=== PATIENT | male | born 1970 | race Caucasian/White ===

== ENCOUNTER 2017-01-09 15:57 | Inpatient (IN) ==
[2017-01-09] MEDS ORDERED: NS 1,000 ML IV ONE ×2 (19:19→20:53)
[2017-01-09] MEDS ORDERED: VANCOMYCIN 1 GM/NS 1 GM/250 ML IVPB IV ONE (19:20)
[2017-01-09] MEDS ORDERED: ZOSYN 4.5 GM/NS 4.5 GM/100 ML IVPB IV ONE (19:20)
[2017-01-09] MEDS ORDERED: DILAUDID IV ONE (19:21)
[2017-01-09] MEDS ORDERED: ZOFRAN IV ONE (19:21)
[2017-01-09] MEDS ORDERED: XYLOCAINE 1% INJ ONE (19:23)
[2017-01-09] MEDS ORDERED: XYLOCAINE-MPF 1% INJ ONE (19:23)
--- NOTE | 2017-01-09 19:27 | PROVIDER DOCUMENTATION ---
HPI-Rash/Wound/ReCheck - General Chief Complaint: Abscess Stated Complaint: POSS INSECT BITE/ABSCESS Time Seen by Provider: 01/09/17 19:10 Source: patient Allergies/Adverse Reactions: Allergies Allergy/AdvReac Type Severity Reaction Status Date / Time cephalexin monohydrate * Allergy HIVES Verified 01/09/17 19:21 [From Keflex] Home Medications: Home Medication List Medication Instructions Recorded Confirmed Last Taken Type NK [No Home Medications] 01/09/17 01/09/17 Unknown History - History of Present Illness-Dermatology Nature of Presenting Problem: 46 year old WM presents with c/o abscess to right knee, left elbow and left lower back. 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 pt reports the knee and elbow wound began as a pimple type wound and has progressed since that time. pt reports over the weekend, the erythema spread quickly into his groin and down his leg. pt reports associated subjective fever/chills with weakness. denies NVD. Location: reports: upper extremity, lower extremity, torso Quality: reports: painful Severity: reports: mild, moderate Onset/Duration: reports: 1 week ago Timing: reports: still present, constant, getting worse Context/Associated Symptoms: reports: insect bite/sting, abscess Identifiable cause?: Yes Similar Symptoms Previously?: No Recently seen or treated by another doctor?: No Review of Systems - Adult - REVIEW OF SYSTEMS - ADULT Constitutional: reports: see HPI, chills, fever, fatique Eyes: reports: no symptoms reported. denies: discharge, blurred vision, double vision, redness Ears, Nose, Mouth & Throat: reports: no symptoms reported. denies: ear discharge, ear pain, nose pain, loose teeth, throat pain, throat swelling Cardiovascular: reports: no symptoms reported. denies: chest pain, palpitations , syncope Respiratory: reports: no symptoms reported. denies: chronic cough, cough, shortness of breath, wheezing Gastrointestinal: reports: no symptoms reported. denies: abdominal pain, diarrhea, nausea, vomiting Genitourinary: reports: no symptoms reported. denies: dysuria, hematuria, urgency Musculoskeletal: reports: no symptoms reported. denies: bone pain, joint pain, joint swelling, neck pain Integumentary: reports: see HPI, rash, skin sores/ulcer. denies: hives, itching Neurological: reports: no symptoms reported. denies: ataxia, dizziness/vertigo , numbness, paresthesia Psychiatric: reports: no symptoms reported Endocrine: reports: no symptoms reported Hematologic/Lymphatic: reports: no symptoms reported Allergic/Immunologic: reports: no symptoms reported. denies: allergic reactions , allergic rhinitis, frequent infections All Other Systems: Reviewed and Negative Past History - Adult - PAST MEDICAL HISTORY-ADULT Review of Records: reports: Old Records Reviewed, Nursing Assessment Review, Medications Reviewed, Social history reviewed & non-contributory. Major Childhood Illnesses: reports: denies history Cardiovascular: reports: denies history Respiratory: reports: denies history Gastrointestinal: reports: denies history Obstetrical/Gynecological: reports: denies history Genitourinary: reports: denies history Musculoskeletal: reports: denies history Neurological: reports: denies history Endocrine/Immune: reports: denies history Other Conditions: reports: denies history - IMMUNIZATION STATUS Childhood Immunizations: See Nurse Assessment Flu Vaccine: See Nurse Assessment - FAMILY HISTORY Family History: reviewed, not pertinent - SOCIAL HISTORY Smoking: cigarettes, greater than 1 pack/day Provider spent 3-5 mins advising pt. on dangers of tobacco.: Discussed manners to quit use, and f/u contacts for add'l counseling. Substance Use: amphetamines Alcohol Use Frequency: occasionally Physical Exam-General - PHYSICAL EXAM-ADULT Initial Vital Signs Reviewed: Yes - CONSTITUTIONAL General Appearance: appears well, alert, mild distress. negative: no apparent distress, moderate distress - EYES Eyes: pink conjunctivae - HEAD, EARS, NOSE, MOUTH & THROAT HENMT: normocephalic/atraumatic, moist mucous membranes, normal ENT inspection - NECK Neck: non-tender, full range of motion, supple, normal inspection. negative: C- spine tenderness, limited range of motion, tender lateral, tender midline - RESPIRATORY Respiratory: chest non-tender, lungs clear, normal breath sounds, no pleuratic chest pain, no respiratory distress, no accessory muscle use. negative: respiratory distress, decreased breath sounds, accessory muscle use, crackles, rales, rhonchi, stridor, wheezing - CARDIOVASCULAR Cardiovascular: normal peripheral pulses, regular rate, rhythm - GASTROINTESTINAL (ABDOMEN) Abdominal Exam: normal bowel sounds, non tender, soft - MUSCULOSKELETAL Back Exam: no CVA tenderness, no vertebral tenderness, other (1cm by 1cm well healed abscess without fluctuance, surrounding erythema.). negative: normal inspection, CVA tenderness, decreased range of motion, swelling, vertebral tenderness Extremity: normal capillary refill, pelvis stable, erythema (7cm by 7cm abscess to right anterior knee + Fluctuance; with diffuse surrounding erythema; erythema spreads down to ankle, anterior foot and up into groin region with streaking. posterior left calf with patches of erythema. 2cm by 2cm abscess to left elbow region with fluctuance and surrounding erythema, scanyt yellow drainage noted.), inflammation, pedal edema, swelling, tenderness. negative: normal range of motion, non-tender, normal gait, normal inspection, no pedal edema, abnormal NV exam, calf tenderness, deformity, pulse deficit, slow capillary refill Peripheral Pulses: radial (R): 3+, radial (L): 3+, dorsalis-pedis (R): 3+, dorsalis-pedis (L): 3+ - SKIN Integumentary: erythema, swelling, tenderness - NEUROLOGIC Neurologic: grossly normal, no motor/sensory deficits - PSYCHIATRIC Psych/Mental Status: normal mood/affect, normal thought content, normal thought process, oriented x 3 Progress - PLAN OF CARE/RESULTS Progress/Plan/Lab Results: Vital Signs - 8 hr 01/09/17 16:06 Temperature 98.9 F Pulse Rate 117 H Respiratory Rate 18 Blood Pressure 146/85 O2 Sat by Pulse Oximetry 99 Laboratory Results - last 24 hr 01/09/17 01/09/17 01/09/17 19:43 19:43 19:43 WBC 15.11 H RBC 5.01 Hgb 14.3 Hct 42.6 MCV 85.0 MCH 28.5 MCHC 33.6 RDW Std Deviation 13.3 Plt Count 314 MPV 9.7 Immature Gran % (Auto) 0.2 Neut % (Auto) 78.1 H Lymph % (Auto) 12.8 L [place] % (Auto) 8.0 Eos % (Auto) 0.7 Baso % (Auto) 0.2 Immature Gran # (Auto) 0.03 Neut # (Auto) 11.80 H Lymph # (Auto) 1.93 [place] # (Auto) 1.21 H Eos # (Auto) 0.11 Baso # (Auto) 0.03 PT INR PTT (Actin FS) Sodium 137 Potassium 3.9 Chloride 96 L Carbon Dioxide 27 Anion Gap 14 BUN 11 Creatinine 0.8 Estimated GFR/1.73 m2 > 60 BUN/Creatinine Ratio 14 Glucose 67 L Calculated Osmolality 271 Calcium 9.3 Total Bilirubin 0.44 AST 15 ALT 13 Alkaline Phosphatase 103 Total Protein 8.0 Albumin 4.2 Globulin 3.8 Albumin/Globulin Ratio 1.1 Plasma Lactate 1.5 Urine Source Urine Color Urine Turbidity Urine pH Ur Specific [place] Urine Protein Ur Glucose (Stick) Ur Ketones (Stick) Urine Blood Urine Nitrite Urine Bilirubin Urobilinogen Dipstick Urine Leukocytes Urine WBC (Auto) Urine RBC (Auto) U Epithel Cells (Auto) Urine Bacteria (Auto) 01/09/17 01/09/17 19:43 20:25 WBC RBC Hgb Hct MCV MCH MCHC RDW Std Deviation Plt Count MPV Immature Gran % (Auto) Neut % (Auto) Lymph % (Auto) [place] % (Auto) Eos % (Auto) Baso % (Auto) Immature Gran # (Auto) Neut # (Auto) Lymph # (Auto) [place] # (Auto) Eos # (Auto) Baso # (Auto) PT 10.7 INR 1.02 PTT (Actin FS) 33.6 Sodium Potassium Chloride Carbon Dioxide Anion Gap BUN Creatinine Estimated GFR/1.73 m2 BUN/Creatinine Ratio Glucose Calculated Osmolality Calcium Total Bilirubin AST ALT Alkaline Phosphatase Total Protein Albumin Globulin Albumin/Globulin Ratio Plasma Lactate Urine Source CLEAN CATCH Urine Color YELLOW Urine Turbidity CLEAR Urine pH 6.5 Ur Specific [place] 1.016 Urine Protein NEGATIVE Ur Glucose (Stick) NEGATIVE Ur Ketones (Stick) NEGATIVE Urine Blood NEGATIVE Urine Nitrite NEGATIVE Urine Bilirubin NEGATIVE Urobilinogen Dipstick 2 A Urine Leukocytes NEGATIVE Urine WBC (Auto) <10 Urine RBC (Auto) <10 U Epithel Cells (Auto) <10 Urine Bacteria (Auto) NEGATIVE Orders Category Date Time Status Saline Loc NOW Care 01/09/17 19:18 Active Suture Tray Set-Up DIRECTED Care 01/09/17 19:23 Active CHEST-2 VIEWS [RAD] Stat Exams 01/09/17 19:19 Taken BLOOD CULTURE [BLDCUL] Stat Lab 01/09/17 19:29 Ordered CBC WITH ELECTRONIC DIFF [HEME] Stat Lab 01/09/17 19:43 Completed COMPREHENSIVE METABOLIC PANEL [CHEM] Stat Lab 01/09/17 19:43 Completed LACTATE, PLASMA [CHEM] Stat Lab 01/09/17 19:43 Completed PROTIME WITH INR [COAG] Stat Lab 01/09/17 19:43 Completed PTT [COAG] Stat Lab 01/09/17 19:43 Completed URINALYSIS W/POSS RFLX CULT-1 [URINALYSIS] Stat Lab 01/09/17 20:25 Completed URINE DRUG SCREEN Stat Lab 01/09/17 20:25 Received 0.9% Sodium Chloride Inj [Ns] 1,000 ml Med 01/09/17 20:53 Active IV 100 mls/hr 0.9% Sodium Chloride Inj [Ns] 1,000 ml Med 01/09/17 19:19 Discontinued IV 999 mls/hr Hydromorphone [Dilaudid] Med 01/09/17 19:21 Discontinued 0.5 mg IV NOW ONE Lidocaine 1% Pf [Xylocaine-Mpf 1%] Med 01/09/17 19:23 Discontinued See Dose Instructions INJ NOW ONE Lidocaine 1% [Xylocaine 1%] Med 01/09/17 19:23 Discontinued 50 ml INJ NOW ONE Ondansetron [Zofran] Med 01/09/17 19:21 Discontinued 4 mg IV NOW ONE Piperacil/Tazobact 4.5 gm/Ns [Zosyn 4.5 gm/Ns] Med 01/09/17 19:20 Discontinued 4.5 gm in 100 ml IV NOW Vancomycin 1 gm/Ns Med 01/09/17 19:20 Discontinued 1 gm in 250 ml IV NOW EKG [EKG] Stat Ther 01/09/17 19:18 Ordered Transfer/Admit Order [TRANSFER] Routine Transfer 01/09/17 20:49 Ordered Vital Signs - 24 hr 01/09/17 16:06 Temperature 98.9 F Pulse Rate 117 H Respiratory Rate 18 Blood Pressure 146/85 O2 Sat by Pulse Oximetry 99 Result Diagrams: 01/09/17 19:43 01/09/17 19:43 - CONSULTS/PCP/HOSPITALIST Notification #1 *Consult/PCP/Hospitalist*: Dr. Mead Time Discussed: 20:34 Consult Disposition: other (referred admission to surgery because pt has no PMH. ) #2 Consult: Dr. Dorman Time Discussed: 20:36 Consult Disposition: Will see in ED (will evaluate in the ED.) Departure - Departure Time of Disposition Decision: 20:34 DIAGNOSIS: Abscess Cellulitis Qualifiers: Site of cellulitis: extremity Site of cellulitis of extremity: lower extremity Laterality: right Qualified Code(s): L03.115 - Cellulitis of right lower limb Disposition: ADMITTED INPATIENT 09 Certified Medical Emergency: Emergent Condition: Stable Referrals and Follow-Ups: None,PCP [Primary Care Provider] - - Critical Care Note This patient required my direct & personal management of CC.: No Attestation - Physician/ MAITE Attestation Patient care was provided by Advanced Practice Provider:: Yes Advanced Practice Provider:: Jarocho Peng Advanced Practice Provider documentation review:: The Mid-level provider documentation, treatment plan and medical decision making was reviewed by the physician who agrees with all treatment and medical decision making by the MLP. The physician spent face to face time with patient:: Yes ([id number]) Advanced Practice Provider documentation review:: The physician spent face to face time with this patient and agrees with all MLP documentation, treatment, and medical decision making by the MLP. See provider notes for further information.
[2017-01-09 19:49] LABS: MANUAL DIFF NEEDED? NO
[2017-01-09 19:55] LABS: BASO% 0.2 % (0.0-0.8); EOS# 0.11 X1000 (0.0-0.7); EOS% 0.7 % (0.0-10.0); HEMATOCRIT 42.6 % (42.0-52.0); HEMOGLOBIN 14.3 g/dL (14.0-18.0); IMM GRAN# 0.03 X1000 (0.0-0.04); IMM GRAN% 0.2 % (0.0-0.5); LYMPH# 1.93 X1000 (1.2-3.4); LYMPH% 12.8 % (20.5-51.1); MCH 28.5 PG (27-31); MCHC 33.6 g/dL (33-37); MONO# 1.21 X1000 (0.11-0.59); MPV 9.7 FL (7.4-10.4); NEUT% 78.1 % (42.2-75.2); PLT 314 X1000 (130-400); RBC 5.01 XMIL (4.7-6.1)
[2017-01-09 20:02] LABS: INR 1.02; PROTIME 10.7 Seconds (9.2-11.7); PTT 33.6 Seconds (22.0-36.0)
[2017-01-09 20:09] LABS: AGAP 14; ALBUMIN 4.2 g/dL (3.5-5.0); ALKALINE PHOSPHATASE 103 U/L (32-122); BUN 11 mg/dL (8-22); CALCIUM 9.3 mg/dL (8.8-10.2); CHLORIDE 96 mmol/L (98-107); COSMO 271; GOT 15 U/L (10-34); GPT 13 U/L (10-44); POTASSIUM 3.9 mmol/L (3.5-5.1); SODIUM 137 mmol/L (136-145); TCO2 27 mmol/L (25-35); TOTAL BILIRUBIN 0.44 mg/dL (0.20-1.00)
[2017-01-09 20:30] LABS: URINE CULTURE NEEDED? NO; URINE MICRO REVIEW NEEDED? NO; URINE SOURCE CLEAN CATCH
[2017-01-09 20:33] LABS: BILIRUBIN URINE NEGATIVE (NEGATIVE); BLOOD URINE NEGATIVE (NEGATIVE); COLOR YELLOW; GLUCOSE URINE NEGATIVE (NEGATIVE); LEUKOCYTES URINE NEGATIVE (NEGATIVE); NITRITE URINE NEGATIVE (NEGATIVE); PH URINE 6.5; PROTEIN URINE NEGATIVE (NEGATIVE); SP GRAVITY URINE 1.016; TURBIDITY URINE CLEAR (CLEAR); UROBILINOGEN URINE 2 mg/dL (NORMAL)
[2017-01-09 20:34] LABS: UR EPITHELIAL CELLS <10 /HPF (<10); URINE BACTERIA NEGATIVE /HPF; URINE RBC <10 /HPF (<10); URINE WBC <10 /HPF (<10)
[2017-01-09 21:05] LABS: UR AMPHETAMINES QUAL PRESUMPTIVE POSITIVE (NONE DETECT); UR BARBITUATES QUAL NONE DETECTED (NONE DETECT); UR BENZODIAZEPIN QUAL NONE DETECTED (NONE DETECT); UR CANNABINOIDS QUAL PRESUMPTIVE POSITIVE (NONE DETECT); UR COCAINE QUAL NONE DETECTED (NONE DETECT); UR METHADONE QUAL NONE DETECTED (NONE DETECT); UR OPIATES QUAL NONE DETECTED (NONE DETECT); UR OXYCODONE QUAL NONE DETECTED (NONE DETECT); UR PCP QUAL NONE DETECTED (NONE DETECT)
--- NOTE | 2017-01-09 21:53 | HISTORY AND PHYSICAL ---
CHIEF COMPLAINT: Skin and soft tissue infection. 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 Left lower back. Began as a pimple like lesion and have worsened. He reports some fever and chills, some pain. He takes no scheduled medications at home even though he has had some psychiatric history and been on some psychiatric drugs in the past. ALLERGIES: He is allergic to Keflex. FAMILY HISTORY: Noncontributory. SOCIAL HISTORY: He smokes a pack a day. Substance uses with amphetamine, alcohol use occasionally. REVIEW OF SYSTEMS: Primarily pertinent for as noted above with chills. fever and fatigue, reports no blurred vision. No neck swelling. No chest pain or shortness of breath. No GI distress. No dysuria. PHYSICAL EXAMINATION: VITAL SIGNS: He is afebrile, heart rate 117, respiratory rate 18, blood pressure 146/85. NECK: No adenopathy. LUNGS: Bilateral breath sounds. HEART: Regular rhythm. ABDOMEN: Soft. EXTREMITIES: He has erythema and swelling over the knee on the right side with some peripheral swelling, he has a small punctate area of erythema on the left elbow. NEURO: He is awake, alert and oriented. DIAGNOSTICS/LABS: White count is 15,100. Other labs are normal. ASSESSMENT: Skin, soft tissue infection. PLAN: Admission with IV antibiotics. Hopefully will not come to I and D but we will follow along. cc: Tom Dorman MD
[2017-01-09] MEDS: NORCO-7.5 PO PRN (23:15)
[2017-01-10] MEDS: NORCO-7.5 PO PRN ×4 (02:51→15:25)
[2017-01-10 05:32] LABS: MANUAL DIFF NEEDED? NO
[2017-01-10 05:36] LABS: BASO% 0.1 % (0.0-0.8); EOS# 0.11 X1000 (0.0-0.7); EOS% 0.8 % (0.0-10.0); HEMATOCRIT 38.1 % (42.0-52.0); HEMOGLOBIN 12.6 g/dL (14.0-18.0); LYMPH# 2.27 X1000 (1.2-3.4); LYMPH% 16.5 % (20.5-51.1); MCH 28.6 PG (27-31); MCHC 33.1 g/dL (33-37); MCV 86.6 FL (81-99); MONO# 1.41 X1000 (0.11-0.59); MONO% 10.3 % (1.7-9.3); MPV 9.6 FL (7.4-10.4); NEUT% 72.3 % (42.2-75.2); PLT 267 X1000 (130-400)
--- NOTE | 2017-01-10 07:47 | Diag Imaging Result Document ---
PROCEDURE NAME: CHEST-2 VIEWS - 01/09/2017 FRONTAL AND LATERAL CHEST, TWO VIEWS: FINDINGS: The lungs are well expanded. The heart is not enlarged. The vessels are not distended. No pneumonia. No pleural effusions. No free air beneath the diaphragm. IMPRESSION: No acute abnormality.
[2017-01-10] MEDS: VANCOMYCIN 1 GM/NS 1 GM/250 ML IVPB IV SCH ×2 (10:43→23:23)
[2017-01-10] MEDS: NORCO-10 PO PRN ×2 (17:51→20:57)
[2017-01-10] MEDS: NICODERM PATCH TD PRN (23:23)
[2017-01-10] MEDS: AMBIEN PO SCH (23:23)
[2017-01-11] MEDS: NORCO-10 PO PRN ×4 (04:47→20:43)
[2017-01-11 06:20] LABS: MANUAL DIFF NEEDED? NO
[2017-01-11 06:30] LABS: BASO% 0.2 % (0.0-0.8); EOS# 0.09 X1000 (0.0-0.7); EOS% 0.7 % (0.0-10.0); HEMATOCRIT 38.2 % (42.0-52.0); HEMOGLOBIN 12.8 g/dL (14.0-18.0); IMM GRAN# 0.03 X1000 (0.0-0.04); IMM GRAN% 0.2 % (0.0-0.5); LYMPH% 10.8 % (20.5-51.1); MCH 28.6 PG (27-31); MCHC 33.5 g/dL (33-37); MCV 85.5 FL (81-99); MONO% 9.3 % (1.7-9.3); MPV 9.6 FL (7.4-10.4); NEUT% 78.8 % (42.2-75.2); PLT 335 X1000 (130-400); RBC 4.47 XMIL (4.7-6.1)
[2017-01-11] MEDS ORDERED: MORPHINE ONE (08:38)
[2017-01-11] MEDS ORDERED: DIPRIVAN 1% ONE (08:38)
[2017-01-11] MEDS: MORPHINE ONE ×5 (09:03→09:20)
[2017-01-11] MEDS ORDERED: NORCO-10 ONE (09:18)
--- NOTE | 2017-01-11 09:24 | OPERATIVE NOTE ---
PROCEDURE DATE: 01/11/2017 PROCEDURES: Incision and drainage right leg abscess on the anterior aspect of the knee. SURGEON: Tom Dorman MD. TECHNICAL SPECIALIST CYTOGENETICS: Litzy. PREOPERATIVE DIAGNOSIS: Skin and soft tissue infection, right knee. POSTOPERATIVE DIAGNOSIS: Skin and soft tissue infection, right knee. DESCRIPTION OF PROCEDURE: Satisfactory general anesthesia was achieved. An LMA was used. The right anterior leg at the knee area was prepped and draped in a sterile fashion. We incised the skin, purulence came forth, we cultured it. We then made a vertical incision, deeper into the skin and soft tissue exposing some underlying purulence. We were able to dissect both medially and laterally into the infected subcutaneous tissue. We excised and debrided the necrotic portions. After we felt that we had opened up all the various subcutaneous compartments with purulence, we then copiously irrigated it. We did pack the wound with iodoform gauze. A sterile gauze and Kerlix was applied. He tolerated it well. Was sent to the recovery room in satisfactory condition. cc: Tom Dorman MD
[2017-01-11] MEDS ORDERED: TORADOL ONE (09:50)
[2017-01-11] MEDS ORDERED: EXTENSION SET 32 IN 4522 ONE (09:50)
[2017-01-11] MEDS ORDERED: ANESTHESIA PB SET 88 IN 5742 ONE (09:50)
[2017-01-11] MEDS ORDERED: XYLOCAINE-MPF 2% ONE (09:50)
[2017-01-11] MEDS ORDERED: LR 1,000 ML ONE (09:50)
[2017-01-11] MEDS: VANCOMYCIN 1 GM/NS 1 GM/250 ML IVPB IV SCH ×2 (10:40→23:22)
[2017-01-11] MEDS: MORPHINE IV PRN ×2 (15:27→23:22)
[2017-01-11] MEDS: PERIDEX MT SCH (20:43)
[2017-01-11] MEDS: AMBIEN PO SCH (23:33)
[2017-01-12] MEDS: NORCO-10 PO PRN ×7 (01:19→23:52)
--- NOTE | 2017-01-12 06:42 | PROGRESS NOTE ---
DATE: 01/12/2017 SUBJECTIVE: The patient had a recent incision and drainage by Dr. Dorman yesterday and had packing placed. He otherwise is doing well. OBJECTIVE: Vital Signs: The patient is currently afebrile. His vital signs have been stable. General: No acute distress. An alert, interactive male who looks his stated age. Cardiovascular: Regular rate and rhythm. Lungs: Grossly clear. Abdomen: Soft, nontender, nondistended. Extremities: Right lower extremity with dressing in place. No significant streaking or erythema noted. ASSESSMENT AND PLAN: A 46-year-old male, status post incision and drainage of leg abscess. Status post incision and drainage of left leg abscess: At this time, we will allow the patient to get in the shower and remove the packing. We will likely want to keep him on antibiotics for another day and monitor and recheck the wound tomorrow. If it shows continued improvement, we may consider transfer and discharge with oral antibiotics. cc: MD Tom Inman MD
[2017-01-12] MEDS: MORPHINE IV PRN ×4 (08:46→18:42)
[2017-01-12] MEDS: PERIDEX MT SCH ×2 (08:46→20:02)
[2017-01-12] MEDS: VANCOMYCIN 1 GM/NS 1 GM/250 ML IVPB IV SCH ×2 (11:32→23:45)
[2017-01-12] MEDS: NICODERM PATCH TD PRN (16:57)
[2017-01-12] MEDS: AMBIEN PO SCH (20:02)
[2017-01-13] MEDS: NORCO-10 PO PRN ×3 (03:16→08:57)
--- NOTE | 2017-01-13 06:33 | PROGRESS NOTE ---
DATE: 01/13/2017 SUBJECTIVE: Patient doing well. We removed his packing yesterday. Overall his wound is appearing better to him. OBJECTIVE: Vital Signs: Patient is currently afebrile. His vital signs are stable. General: No acute distress. Cardiovascular: Regular rate and rhythm. Lungs: Grossly clear. Extremity: Some mild erythema noted around the wound. The wound itself has good granulation base. No purulence encountered. No crepitus encountered. Microbiology: Patient does have a gram- positive cocci concerning for potential for MRSA. ASSESSMENT AND PLAN: A 46-year-old male status post incision and drainage of right leg abscess. Right leg abscess. At this time, patient has been on 2 days' worth of vancomycin. His wound overall appears healthy to the point he could probably be discharged home on p.o. antibiotics. We will send him out on Bactrim and pain medicine. Discussed with the patient given his recent move that it would be best if he did follow up with Dr. Dorman next week for wound evaluation. The patient to return to the ER if his wound increases in redness or any other clinical changes. The nurses will instruct him on how to do wet-to-dry dressing changes twice a day. cc: MD Tom Inman MD
[2017-01-13 07:54] VITALS: BP 133/97
[2017-01-13] MEDS: MORPHINE IV PRN (08:21)
--- NOTE | 2017-01-18 01:03 | DISCHARGE SUMMARY ---
ADMISSION DATE: 01/09/2017 DISCHARGE DATE: 01/13/2017 PRIMARY DISCHARGE DIAGNOSIS: MRSA infection of the skin and soft tissue over the right knee. PRIMARY PROCEDURE: Incision and drainage and debridement of the wound. 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 He felt that he had been bitten by a spider, but developed some pain and fever involving the right knee. He was admitted and placed on IV antibiotics. Over the course of his stay, it became evident that the erythema worsened, and it would not resolve just with IV antibiotic therapy, so on 01/11/2017, he was taken to the operating room and underwent an incision, drainage, and debridement. The wound was packed with iodoform gauze. The day after, he improved. The packing was removed. He was seen by Dr. Henson in my absence. He was continued on vancomycin. On 01/13/2017, because of his improvement, it was felt he could be discharged home. He will be discharged home on Bactrim, and will be given some pain medication. He will return to the office in followup. cc: Tom Dorman MD
== END 2017-01-13 09:29 | disposition home or self-care (01) ==
LOC: ED 15:57 → 4N 22:03
PROVIDERS: ADMIT Surgery; ATTEND Surgery